=== PATIENT | female | born 1990 | race Caucasian/White ===

== ENCOUNTER 2021-11-04 14:36 | Emergency (ER) | payer BC ==
[~2021-11-04] VITALS: Ht 157.5 cm; Wt 121.7 kg
[2021-11-04 16:31] VITALS: BP 136/89
[2021-11-04] MEDS ORDERED: DIPHTH,PERTUSS(ACELL),TET TOX 0.5 ML DISP.SYRIN. VAX IM ONE (16:45)
[2021-11-04] MEDS ORDERED: CIPR500T2 PO (16:52)
--- NOTE | 2021-11-04 16:54 | PHYS DOC ---
General Adult EDM: Chief Complaint: FOOT INJURY PAIN HPI: HPI: Patient is a 31-year-old female who presents to the emergency department after stepping on a abby nail with her right foot. She reports that the nail came out completely and did go through her shoe. Patient rates pain 4 out of 10. She is unsure of her last tetanus shot. She denies any decreased range of motion, she is able to bear weight she denies any decreased sensation to her extremity. (ENRIQUE ALEJO APRN) Review of Systems: Review of Systems: Musculoskeletal: See HPI Integument: See HPI Neurologic: See HPI (ENRIQUE ALEJO APRN) Allergies: Allergies: Allergies Uncoded Allergies Type Severity Reaction Last Updated Verified other Allergy Unknown "I dont know" 11/04/21 (ENRIQUE ALEJO APRN) Physical Exam: PE: Constitutional: Well developed, well nourished, no acute distress, non-toxic appearance. [] HENT: Normocephalic, atraumatic, bilateral external ears normal, oropharynx moist, no oral exudates, nose normal. [] Eyes: PERRL, EOMI, conjunctiva normal, no discharge. [] Neck: Normal range of motion, no stridor Cardiovascular: Normal peripheral perfusion Lungs & Thorax: Normal work of breathing, no tachypnea Abdomen: Obese and soft Skin: Warm, dry, no erythema, no rash. [] Back: Normal range of motion Extremities: No tenderness, no cyanosis, no clubbing, ROM intact, no edema. [] Right foot: Small puncture noted to the plantar aspect of right foot, no active bleeding, no palpable foreign body, range of motion intact, neuro intact Neurologic: Alert and oriented X 3, normal motor function, normal sensory function, no focal deficits noted. [] Psychologic: Affect normal, judgement normal, mood normal. [] (ENRIQUE ALEJO APRN) EKG: EKG: [] (ENRIQUE ALEJO APRN) Radiology/Procedures: Radiology/Procedures: [] (ENRIQUE ALEJO APRN) Heart Score: C/O Chest Pain: N/A Risk Factors: Risk Factors: DM, Current or recent (<one month) smoker, HTN, HLP, family history of CAD, obesity. Risk Scores: Score 0 - 3: 2.5% MACE over next 6 weeks - Discharge Home Score 4 - 6: 20.3% MACE over next 6 weeks - Admit for Clinical Observation Score 7 - 10: 72.7% MACE over next 6 weeks - Early Invasive Strategies (ENRIQUE ALEJO APRN) Course & Med Decision Making: Course & Med Decision Making Pertinent Labs and Imaging studies reviewed. (See chart for details) [] Patient presents to the emergency department after stepping on a abby nail with her right foot. She reports that the nail did go through her shoe and into her foot. She does have a puncture to the plantar aspect of her right foot. This was cleansed and a dressing was placed. Patient is unsure of her last tetanus so this was updated in the emergency department today. I discussed the need for an x-ray to rule out a foreign body and patient is refusing x-ray imaging of her foot. She states that she just wants to get a tetanus shot and antibiotic. Patient states that she is allergic to "all antibiotics other than penicillin and amoxicillin" I asked patient if she was allergic to ciprofloxacin and she stated that she was not allergic to Cipro and that she was only allergic to azithromycin. Patient will be discharged home with an antibiotic. She is educated on wound care. Advised to take Tylenol and ibuprofen for her pain. I discussed with patient all findings as well as the need to follow-up with PCP for further evaluation and treatment or return to the ER if any new or worsening symptoms. Strict return precautions were also discussed at length. Patient voiced understanding and agreement with the plan. Patient is hemodynamically stable at the time of disposition. (ENRIQUE ALEJO APRN) Dragon Disclaimer: Dragon Disclaimer: This electronic medical record was generated, in whole or in part, using a voice recognition dictation system. (ENRIQUE ALEJO APRN) Attending Co-Sign The patient was seen and interviewed as well as examined at the bedside. The chart was reviewed. The case was discussed. Agree with the plan of care. (ROCIO AGUILAR DO) Departure Departure: Impression: Primary Impression: Puncture wound of foot Qualified Codes: S91.331A - Puncture wound without foreign body, right foot, initial encounter Disposition: HOME / SELF CARE / HOMELESS Condition: GOOD Referrals: NON,STAFF (PCP) Patient Instructions: Puncture Wound Additional Instructions: You are seen in the emergency department after stepping on a abby nail. Your tetanus was updated in the ER today. You are being discharged home with an antibiotic. Please start and finish the antibiotic completely. He can take Tylenol and ibuprofen for your pain. Please keep your puncture wound clean and dry. You can keep the dressing in place. Monitor for any signs of infection which include redness, warmth, swelling or drainage. Follow-up with your primary care provider on Saturday regarding your ER visit. Return to the emergency department if you develop any signs of infection, worsening of your pain, increased swelling, decreased sensation to your extremity or inability to bear weight or walk. Scripts Ciprofloxacin Hcl (CIPROFLOXACIN HCL) 500 Mg Tablet 1 TAB PO BID for puncture wound for 7 Days, #14 TAB 0 Refills Prov: ENRIQUE ALEJO APRN 11/04/21 ENRIQUE ALEJO APRN Nov 04, 2021 16:53 ROCIO AGUILAR DO Nov 05, 2021 06:45
== END 2021-11-04 17:24 | disposition home or self-care (01) ==
LOC: ER 14:36
DX: S91.331A Puncture wound without foreign body, right foot, initial encounter (principal); Z88.8 Allergy status to other drugs, medicaments and biological substances; W22.8XXA Striking against or struck by other objects, initial encounter; Y93.89 Activity, other specified; Y92.89 Other specified places as the place of occurrence of the external cause; Y99.8 Other external cause status
CPT/HCPCS: 90471; 90715; 99283